=== PATIENT | male | born 1955 | race Caucasian/White ===

== ENCOUNTER 2016-02-25 10:57 | Inpatient (IN) | payer OTHER ==
[~2016-02-25] VITALS: Ht 172.7 cm; Wt 89.8 kg
[2016-02-25] MEDS ORDERED: LORAZEPAM 2 MG/ML VIAL ONE ×2 (11:57→15:18)
[2016-02-25] MEDS ORDERED: ONDANSETRON 4 MG VIAL ONE (11:57)
[2016-02-25] MEDS ORDERED: ED DILTIAZEM DRIP 125 ML IV ONE (11:57)
[2016-02-25] MEDS ORDERED: DILTIAZEM 50 MG/10 ML VIAL IV ONE (11:58)
[2016-02-25] MEDS ORDERED: SODIUM CHLORIDE 0.9% 1,000 ML ONE ×2 (11:58→15:18)
[2016-02-25] MEDS ORDERED: MULTIVITS ADULT INJ 10 ML, THIAMINE 100 MG, FOLIC ACID INJ 1 MG in SODIUM CHLORIDE 0.9%... IV ONE ×3 (12:10)
[2016-02-25] MEDS ORDERED: LABETALOL 100 MG/20 ML VIAL ONE (14:23)
[2016-02-25] MEDS ORDERED: CHLORDIAZEPOXIDE 25 MG CAP PO PRN (14:35)
[2016-02-25] MEDS: DILTIAZEM CD 120 MG CAP PO SCH (14:35)
[2016-02-25] MEDS ORDERED: CARDIZEM 1 MG/ML DRIP 125 ML IV PRN (14:35)
[2016-02-25] MEDS ORDERED: ONDANSETRON 4 MG VIAL IV PRN (14:35)
[2016-02-25] MEDS ORDERED: GLUCAGON 1 MG VIAL IM PRN (14:35)
[2016-02-25] MEDS: METOPROLOL TART 25 MG TAB PO SCH ×2 (14:35→21:00)
[2016-02-25] MEDS ORDERED: FOLIC ACID INJ 1 MG in SODIUM CHLORIDE 0.9% 50 ML IV ONE (14:35)
[2016-02-25] MEDS ORDERED: PROMETHAZINE 25 MG/ML VIAL IV PRN (14:35)
[2016-02-25] MEDS ORDERED: SALINE FLUSH 10 ML FLUSH PRN (14:35)
[2016-02-25] MEDS ORDERED: DEXTROSE 50% SYRINGE 50 ML IV PRN (14:35)
[2016-02-25 17:29] VITALS: BP_SYST 144; BP_SYST 158; RESP 18; TEMP 97.9
[2016-02-25 17:31] VITALS: Ht 172.7 cm; Wt 89.8 kg
[2016-02-25] MEDS: D5-1/2-NS W/KCL 20MEQ/L 1,000 ML IV SCH (17:46)
[2016-02-25] MEDS ORDERED: MISSING DOSE XX ONE ×2 (17:55)
[2016-02-25] MEDS ORDERED: FONDAPARINUX 2.5 MG SYR SUBQ SCH (18:00)
[2016-02-25 19:00] VITALS: BP_SYST 158; RESP 20; TEMP 97.5
[2016-02-25] MEDS: MAGNESIUM SULF 1 GM/100 ML 100 ML IV SCH ×2 (19:14→21:01)
[2016-02-25] MEDS: OMNIPAQUE 240 MG/ML, 50 ML PO SCH ×2 (19:36→22:02)
[2016-02-25] MEDS: PANTOPRAZOLE 40 MG VIAL IV SCH (21:00)
[2016-02-25] MEDS: SALINE FLUSH 10 ML FLUSH SCH (21:01)
[2016-02-25] MEDS: THIAMINE 100 MG in SODIUM CHLORIDE 0.9% 50 ML IV SCH (21:01)
[2016-02-25 23:00] VITALS: RESP 18
[2016-02-26] MEDS: METRONIDAZOLE 500 MG TAB PO SCH ×2 (00:21→08:05)
[2016-02-26] MEDS ORDERED: OPTIRAY 350 100 ML VIAL HMH IV ONE (00:54)
[2016-02-26 03:00] VITALS: RESP 18; TEMP 96.3
[2016-02-26] MEDS: D5-1/2-NS W/KCL 20MEQ/L 1,000 ML IV SCH (05:52)
[2016-02-26] MEDS: SODIUM CHLORIDE 0.9% FLUSH BAG 500 ML IV SCH (06:00)
[2016-02-26 07:12] VITALS: BP_SYST 112; RESP 16; TEMP 98.5
[2016-02-26] MEDS: PANTOPRAZOLE 40 MG VIAL IV SCH (08:04)
[2016-02-26] MEDS: SALINE FLUSH 10 ML FLUSH SCH ×2 (08:04→20:27)
[2016-02-26] MEDS: FOLIC ACID 1 MG TAB PO SCH (08:05)
[2016-02-26] MEDS: THIAMINE 100 MG in SODIUM CHLORIDE 0.9% 50 ML IV SCH (08:05)
[2016-02-26] MEDS: METOPROLOL TART 25 MG TAB PO SCH ×2 (08:05→20:25)
[2016-02-26] MEDS: MULTIVITS/MINERALS (THERAGRAN M) TAB PO SCH (08:06)
[2016-02-26] MEDS: DILTIAZEM CD 120 MG CAP PO SCH (08:07)
[2016-02-26] MEDS ORDERED: MAGNESIUM SULF 1 GM/100 ML 100 ML IV ONE (09:15)
[2016-02-26] MEDS ORDERED: KCL CR 10 MEQ CAP PO ONE (10:25)
[2016-02-26 10:50] VITALS: BP_SYST 132; RESP 18; TEMP 98
[2016-02-26] MEDS: SACCHA BOULARDII 250MG CAP PO SCH ×2 (11:13→20:25)
[2016-02-26] MEDS: POTASSIUM CHLORIDE PREMIX 50 ML IV SCH ×4 (11:14→14:44)
[2016-02-26 15:24] VITALS: BP_SYST 140; RESP 18; TEMP 96.8
[2016-02-26] MEDS ORDERED: METRONIDAZOLE IV SCH (16:00)
[2016-02-26] MEDS ORDERED: SODIUM CHLORIDE 0.9% IV SCH (16:00)
[2016-02-26] MEDS: KCL CR 10 MEQ CAP PO SCH ×2 (16:29→20:25)
[2016-02-26 19:20] VITALS: BP_SYST 130; RESP 18; TEMP 97.1
[2016-02-26] MEDS: RIFAXIMIN 200 MG TAB PO SCH (20:24)
[2016-02-26] MEDS: SUCRALFATE 1GM/10ML SUSP PO SCH (20:25)
[2016-02-26] MEDS: ASPIRIN 81 MG CHEW TAB PO SCH (20:25)
[2016-02-26] MEDS: CHOLECALCIFEROL 1,000 UNITS TAB PO SCH (20:25)
[2016-02-26] MEDS: CYANOCOBA 500 MCG TAB PO SCH (20:26)
[2016-02-26] MEDS: PRIMIDONE 50 MG TAB PO SCH (20:26)
[2016-02-26] MEDS: LEVEMIR INSULIN SUBQ SCH (20:28)
[2016-02-26] MEDS: METRONIDAZOLE IV SCH (23:25)
[2016-02-26] MEDS: SODIUM CHLORIDE 0.9% IV SCH (23:25)
[2016-02-27] VITALS (7 sets, daily range): BP systolic 115–130; RESP 16–18; TEMP 97.5–98.6
[2016-02-27] MEDS: SUCRALFATE 1GM/10ML SUSP PO SCH ×2 (06:20→17:23)
[2016-02-27] MEDS: SODIUM CHLORIDE 0.9% FLUSH BAG 500 ML IV SCH (06:21)
[2016-02-27] MEDS: LEVEMIR INSULIN SUBQ SCH ×2 (08:08→21:00)
[2016-02-27] MEDS: MULTIVITS/MINERALS (THERAGRAN M) TAB PO SCH (08:09)
[2016-02-27] MEDS: SALINE FLUSH 10 ML FLUSH SCH ×2 (08:09→21:23)
[2016-02-27] MEDS: METRONIDAZOLE IV SCH (08:09)
[2016-02-27] MEDS: SODIUM CHLORIDE 0.9% IV SCH (08:09)
[2016-02-27] MEDS: KCL CR 10 MEQ CAP PO SCH ×3 (08:10→21:21)
[2016-02-27] MEDS: RIFAXIMIN 200 MG TAB PO SCH ×3 (08:10→21:19)
[2016-02-27] MEDS: SACCHA BOULARDII 250MG CAP PO SCH ×2 (08:10→21:20)
[2016-02-27] MEDS: METOPROLOL TART 25 MG TAB PO SCH ×2 (08:11→21:21)
[2016-02-27] MEDS: DILTIAZEM CD 120 MG CAP PO SCH (08:11)
[2016-02-27] MEDS: FOLIC ACID 1 MG TAB PO SCH (08:11)
[2016-02-27] MEDS: ASPIRIN 81 MG CHEW TAB PO SCH (08:11)
[2016-02-27] MEDS: CHOLECALCIFEROL 1,000 UNITS TAB PO SCH (08:12)
[2016-02-27] MEDS: CYANOCOBA 500 MCG TAB PO SCH (08:12)
[2016-02-27] MEDS: THIAMINE 100 MG TAB PO SCH (08:12)
[2016-02-27] MEDS: POTASSIUM CHLORIDE PREMIX 50 ML IV SCH ×2 (10:55→12:47)
[2016-02-27] MEDS: METRONIDAZOLE 500 MG TAB PO SCH ×2 (16:14→21:21)
[2016-02-27] MEDS: MAGNESIUM SULF 1 GM/100 ML 100 ML IV SCH ×2 (16:14→17:25)
[2016-02-27] MEDS ORDERED: Phytonadione 5 MG TAB PO ONE (18:45)
[2016-02-27] MEDS: LISINOPRIL 2.5 MG TAB PO SCH (21:19)
[2016-02-27] MEDS: PRIMIDONE 50 MG TAB PO SCH (21:20)
[2016-02-28] MEDS: SODIUM CHLORIDE 0.9% FLUSH BAG 500 ML IV SCH (02:50)
[2016-02-28 04:04] VITALS: BP_SYST 130; RESP 18; TEMP 98
[2016-02-28] MEDS: SUCRALFATE 1GM/10ML SUSP PO SCH ×2 (05:42→15:54)
[2016-02-28 07:18] VITALS: BP_SYST 120; RESP 18; TEMP 98.1
[2016-02-28] MEDS: SALINE FLUSH 10 ML FLUSH SCH ×2 (09:07→21:00)
[2016-02-28] MEDS: KCL CR 10 MEQ CAP PO SCH (09:09)
[2016-02-28] MEDS: CYANOCOBA 500 MCG TAB PO SCH (09:09)
[2016-02-28] MEDS: LEVEMIR INSULIN SUBQ SCH ×2 (09:09→21:00)
[2016-02-28] MEDS: SACCHA BOULARDII 250MG CAP PO SCH ×2 (09:10→20:57)
[2016-02-28] MEDS: METOPROLOL TART 25 MG TAB PO SCH ×2 (09:10→20:57)
[2016-02-28] MEDS: RIFAXIMIN 200 MG TAB PO SCH ×3 (09:10→20:55)
[2016-02-28] MEDS: CHOLECALCIFEROL 1,000 UNITS TAB PO SCH (09:10)
[2016-02-28] MEDS: METRONIDAZOLE 500 MG TAB PO SCH ×3 (09:10→20:57)
[2016-02-28] MEDS: MULTIVITS/MINERALS (THERAGRAN M) TAB PO SCH (09:10)
[2016-02-28] MEDS: FOLIC ACID 1 MG TAB PO SCH (09:10)
[2016-02-28] MEDS: THIAMINE 100 MG TAB PO SCH (09:10)
[2016-02-28 11:10] VITALS: BP_SYST 121; RESP 18; TEMP 97.4
[2016-02-28 15:25] VITALS: BP_SYST 122; RESP 18; TEMP 98
[2016-02-28] MEDS ORDERED: PANTOPRAZOLE 40 MG TAB PO SCH (16:00)
[2016-02-28 19:48] VITALS: BP_SYST 146; RESP 16; TEMP 99
[2016-02-28] MEDS: LISINOPRIL 2.5 MG TAB PO SCH (20:55)
[2016-02-28] MEDS: PRIMIDONE 50 MG TAB PO SCH (20:57)
[2016-02-28 23:11] VITALS: BP_SYST 134; RESP 16; TEMP 98.7
[2016-02-29 03:17] VITALS: BP_SYST 130; RESP 16; TEMP 97.8
[2016-02-29] MEDS: SODIUM CHLORIDE 0.9% FLUSH BAG 500 ML IV SCH (06:00)
[2016-02-29] MEDS: SUCRALFATE 1GM/10ML SUSP PO SCH ×2 (06:19→16:00)
[2016-02-29 07:21] VITALS: BP_SYST 110; RESP 18; TEMP 98.5
[2016-02-29] MEDS ORDERED: THIAMINE 100 MG in SODIUM CHLORIDE 0.9% 50 ML IV SCH (09:00)
[2016-02-29] MEDS ORDERED: KCL CR 10 MEQ CAP PO SCH (09:00)
[2016-02-29] MEDS: CHOLECALCIFEROL 1,000 UNITS TAB PO SCH (09:08)
[2016-02-29] MEDS: LEVEMIR INSULIN SUBQ SCH (09:08)
[2016-02-29] MEDS: METOPROLOL TART 25 MG TAB PO SCH ×2 (09:08→18:23)
[2016-02-29] MEDS: MULTIVITS/MINERALS (THERAGRAN M) TAB PO SCH (09:08)
[2016-02-29] MEDS: CYANOCOBA 500 MCG TAB PO SCH (09:09)
[2016-02-29] MEDS: THIAMINE 100 MG TAB PO SCH (09:09)
[2016-02-29] MEDS: RIFAXIMIN 200 MG TAB PO SCH ×3 (09:09→18:24)
[2016-02-29] MEDS: METRONIDAZOLE 500 MG TAB PO SCH ×3 (09:10→18:23)
[2016-02-29] MEDS: SACCHA BOULARDII 250MG CAP PO SCH ×2 (09:10→18:23)
[2016-02-29] MEDS: FOLIC ACID 1 MG TAB PO SCH (09:12)
[2016-02-29 11:13] VITALS: BP_SYST 118; RESP 18; TEMP 95.2
[2016-02-29] MEDS: SALINE FLUSH 10 ML FLUSH SCH (12:28)
[2016-02-29 15:30] VITALS: BP_SYST 124; RESP 18; TEMP 97.8
[2016-02-29 18:05] VITALS: BP_SYST 124; RESP 18; TEMP 97.8
[2016-02-29] MEDS: PRIMIDONE 50 MG TAB PO SCH (18:23)
[2016-02-29] MEDS: LISINOPRIL 2.5 MG TAB PO SCH (18:23)
== END 2016-02-29 18:43 | disposition home or self-care (01) | DRG 372 ==
LOC: ENRESERVDT → ENRESERVTM → CANRESERV → ER 10:57 → ENPENDDIS 14:56 → EMR 14:56 → 4THE 16:08
PROVIDERS: ADMIT Internal Medicine; ATTEND Internal Medicine
CPT/HCPCS: 36415; 71010; 74000; 74177; 80053; 80061; 80074; 80162; 81001; 82105; 82140; 82550; 82553; 82607; 82746; 82947; 83036; 83605; 83690; 83735; 83880; 84100; 84439; 84443; 84484; 85025; 85610; 85730; 87088; 87493; 93005; 93306; 94799; 96361; 96365; 96375; 99233